=== PATIENT | female | born 1990 | race American Indian/Alaskan Native ===

== ENCOUNTER 2017-02-13 19:44 | Emergency (ER) | payer OTHER ==
[2017-02-13 20:37] LABS: Basophils % (Auto) 0.6 % (0.0-1.8); Eosinophils % (Auto) 1.3 % (0.0-4.3); Hematocrit 38.2 % (30.3-42.9); Hemoglobin 12.5 gm/dl (10.1-14.3); Mean Corpuscular HGB Conc 33 % (30-34); Mean Corpuscular Hemoglobin 29 pg (28-32); Mean Corpuscular Volume 87 fl (79-97); Platelet Count 376 K/mm3 (140-440); Red Cell Distribution Width 16.8 % (13.2-15.2); White Blood Count 8.6 K/mm3 (4.5-11.0)
[2017-02-13 21:25] LABS: Anion Gap 21 mmol/L; Blood Urea Nitrogen 9 mg/dL (7-17); Calcium 8.9 mg/dL (8.4-10.2); Carbon Dioxide 21 mmol/L (22-30); Chloride 100.1 mmol/L (98-107); Glucose 75 mg/dL (65-100); Potassium 3.9 mmol/L (3.6-5.0); Sodium 138 mmol/L (137-145)
[2017-02-13 21:57] LABS: Bilirubin,Urine NEG (Negative); Blood,Urine NEG (Negative); Ketones,Urine NEG (Negative); Leukocyte Esterase,Urine NEG (Negative); Mucus,Urine FEW /HPF; Nitrite,Urine NEG (Negative); Protein,Urine <15 mg/dL mg/dL (Negative); RBC,Urine < 1.0 /HPF (0.0-6.0); Urobilinogen,Urine < 2.0 mg/dL (<2.0)
[2017-02-14] MEDS ORDERED: TYLENOL PO ONE (00:04)
--- NOTE | 2017-02-14 02:16 | Ultrasound Report ---
FINAL REPORT PROCEDURE: US OB \T\lt; = 14 WEEKS FETUS TECHNIQUE: Real-time transvaginal sonography of the uterus, placenta, amniotic fluid, adnexa, and fetus was performed with image documentation. Measurements were obtained to determine age/size. M-mode Doppler was used to document heartbeat. HISTORY: abdominal pain. COMPARISON: No prior studies are available for comparison. FINDINGS: CRL: 22.2 mm, which corresponds to a gestational age of: 8 weeks, 6 days. Yolk Sac: Normal. Embryonic Cardiac Activity: 163 beats per minute Gestational Sac: Normal. Amniotic fluid: Normal. Cervix: Normal. Right Ovary: Not identified Left Ovary: There is a 2.6 centimeter corpus luteal cyst. Estimated delivery date: 09/20/2017 Uterus and adnexa: Normal. IMPRESSION: Single live intrauterine gestation at approximately 8 weeks and 6 days. EDC by US 09/20/2017
--- NOTE | 2017-02-14 02:16 | Ultrasound Report ---
FINAL REPORT PROCEDURE: US OB \T\lt; = 14 WEEKS FETUS TECHNIQUE: Real-time transabdominal sonography of the uterus, placenta, amniotic fluid, adnexa, and fetus was performed with image documentation. Measurements were obtained to determine age/size. M-mode Doppler was used to document heartbeat. CPT 61649 HISTORY: abdominal pain. COMPARISON: No prior studies are available for comparison. FINDINGS: CRL: 22.2 mm, which corresponds to a gestational age of: 8 weeks, 6 days. Yolk Sac: Normal. Embryonic Cardiac Activity: 163 beats per minute Gestational Sac: Normal. Amniotic fluid: Normal. Cervix: Normal. Right Ovary: Not identified Left Ovary: There is a 2.6 centimeter corpus luteal cyst. Estimated delivery date: 09/20/2017 Uterus and adnexa: Normal. IMPRESSION: Single live intrauterine gestation at approximately 8 weeks and 6 days. EDC by US 09/20/2017
[2017-02-14] MEDS ORDERED: ZOFRAN ODT PO ONE (03:28)
--- NOTE | 2017-02-14 03:31 | Emergency Department Report ---
HPI - General Chief Complaint: Abdominal Pain Time Seen by Provider: 02/14/17 03:08 - HPI HPI: Room 24 The patient is a 26-year-old female presenting with chief complaint of bilateral pedal edema and abdominal pain. Patient states she is but has not yet seen an SENIOR INTERACTIVE PRODUCER for this . Patient states she came today because for 1 week she has had swelling in both feet and it causes pain and difficulty using her shoes. Patient states for 2 days she has had periumbilical abdominal cramping. The patient states today she noticed intractable nausea vomiting making her unable to eat or drink. Location: [see above] Duration: [see above] Quality: Cramping Severity: Moderate Modifying factors: [see above] Context: [see above] Mode of transportation: Unknown ED Past Medical Hx - Past Medical History Hx Hypertension: Yes Additional medical history: PCOS, Morbid Obesity - Surgical History Additional Surgical History: X1 - Family History Family history: no significant - Social History Smoking Status: Never Smoker Substance Use Type: None - Medications Home Medications: Home Medications Medication Instructions Recorded Confirmed Last Taken Type Ondansetron [Zofran ODT TAB] 8 mg PO Q8HR #20 tab.rapdis 02/14/17 Unknown Rx ED Review of Systems ROS: Stated complaint: SWOLLEN FEET Other details as noted in HPI Comment: All other systems reviewed and negative Constitutional: denies: chills, fever Eyes: denies: eye pain, eye discharge, vision change ENT: denies: ear pain, throat pain Respiratory: denies: cough, shortness of breath, wheezing Cardiovascular: denies: chest pain, palpitations Endocrine: no symptoms reported Gastrointestinal: abdominal pain, nausea, vomiting Genitourinary: denies: urgency, dysuria, discharge Musculoskeletal: denies: back pain, joint swelling, arthralgia Skin: denies: rash, lesions Neurological: denies: headache, weakness, paresthesias Psychiatric: denies: anxiety, depression Hematological/Lymphatic: other (bilateral pedal edema) Physical Exam - Physical Exam Vital Signs: Vital Signs 02/13/17 20:15 Temperature 98.6 F Pulse Rate 84 Respiratory 16 Rate Blood Pressure 162/84 Blood Pressure 162/84 [Left] O2 Sat by Pulse 100 Oximetry Physical Exam: GENERAL: The patient is well-developed well-nourished female lying on stretcher not appearing to be in acute distress. [] HEENT: Normocephalic. Atraumatic. Extraocular motions are intact. Patient has moist mucous membranes. NECK: Supple. Trachea midline CHEST/LUNGS: Clear to auscultation. There is no respiratory distress noted. HEART/CARDIOVASCULAR: Regular. There is no tachycardia. There is no gallop rub or murmur. ABDOMEN: Abdomen is soft, without tenderness to palpation in all 4 quadrants of the abdomen. Patient has normal bowel sounds. There is no abdominal distention. SKIN: There is no rash. There is no pitting edema appreciated. Patient's body habitus makes evaluation for nonpitting edema difficult. There is no diaphoresis. NEURO: The patient is awake, alert, and oriented. The patient is cooperative. The patient has normal speech MUSCULOSKELETAL: There is no evidence of acute injury. ED Course Vital Signs 02/13/17 20:15 Temperature 98.6 F Pulse Rate 84 Respiratory 16 Rate Blood Pressure 162/84 Blood Pressure 162/84 [Left] O2 Sat by Pulse 100 Oximetry ED Medical Decision Making - Lab Data Result diagrams: 02/13/17 20:26 02/13/17 20:26 Laboratory Tests 02/13/17 02/13/17 02/13/17 20:26 20:26 20:26 WBC 8.6 RBC 4.40 Hgb 12.5 Hct 38.2 MCV 87 MCH 29 MCHC 33 RDW 16.8 H Plt Count 376 Lymph % (Auto) 40.0 H [place] % (Auto) 9.5 H Eos % (Auto) 1.3 Baso % (Auto) 0.6 Lymph # 3.4 [place] # 0.8 Eos # 0.1 Baso # 0.1 Seg Neutrophils % 48.6 Seg Neutrophils # 4.2 Sodium 138 Potassium 3.9 Chloride 100.1 Carbon Dioxide 21 L Anion Gap 21 BUN 9 Creatinine 0.6 L Estimated GFR > 60 BUN/Creatinine Ratio 15.00 Glucose 75 Calcium 8.9 Total Bilirubin Direct Bilirubin Indirect Bilirubin AST ALT Alkaline Phosphatase NT-Pro-B Natriuret Pep Total Protein Albumin Albumin/Globulin Ratio HCG, Quant 15631 H Urine Color Urine Turbidity Urine pH Ur Specific [place] Urine Protein Urine Glucose (UA) Urine Ketones Urine Blood Urine Nitrite Urine Bilirubin Urine Urobilinogen Ur Leukocyte Esterase Urine WBC (Auto) Urine RBC (Auto) U Epithel Cells (Auto) Urine Mucus 02/13/17 02/13/1702/13/17 20:26 20:26 21:21 WBC RBC Hgb Hct MCV MCH MCHC RDW Plt Count Lymph % (Auto) [place] % (Auto) Eos % (Auto) Baso % (Auto) Lymph # [place] # Eos # Baso # Seg Neutrophils % Seg Neutrophils # Sodium Potassium Chloride Carbon Dioxide Anion Gap BUN Creatinine Estimated GFR BUN/Creatinine Ratio Glucose Calcium Total Bilirubin 0.20 Direct Bilirubin < 0.2 Indirect Bilirubin 0.0 AST 14 ALT 16 Alkaline Phosphatase 40 NT-Pro-B Natriuret Pep 27.17 Total Protein 7.2 Albumin 3.5 L Albumin/Globulin Ratio 0.9 HCG, Quant Urine Color Yellow Urine Turbidity Clear Urine pH 6.0 Ur Specific [place] 1.017 Urine Protein <15 mg/dl Urine Glucose (UA) Neg Urine Ketones Neg Urine Blood Neg Urine Nitrite Neg Urine Bilirubin Neg Urine Urobilinogen < 2.0 Ur Leukocyte Esterase Neg Urine WBC (Auto) 1.0 Urine RBC (Auto) < 1.0 U Epithel Cells (Auto) 2.0 Urine Mucus Few - Radiology Data Radiology results: report reviewed (pelvic ultrasound), image reviewed (pelvic ultrasound) Pelvic ultrasound (read by radiologist)-single live intrauterine gestation at approximately 8 weeks and 6 days. - Differential Diagnosis hypoalbuminemia, renal insufficiency, Critical care attestation.: If time is entered above; I have spent that time in minutes in the direct care of this critically ill patient, excluding procedure time. ED Disposition Clinical Impression: Pedal edema, , Nausea & vomiting Disposition: DC-01 TO HOME OR SELFCARE Is pt being admited?: No Does the pt Need Aspirin: No Condition: Stable Instructions: Abdominal Pain (ED) Additional Instructions: Return to the emergency department immediately should you develop worsening symptoms, fever, inability to tolerate food or liquid or any other concerns. Prescriptions: Ondansetron [Zofran ODT TAB] 8 mg PO Q8HR #20 tab.rapdis Referrals: PRIMARY CAREMD [Primary Care Provider] - 3-5 Days SVETLANA SANTOYO MD [Staff Physician] - 3-5 Days (Dr. Santoyo is an OB/ FREEZER WORKER. Please follow up with her or-year-old SENIOR INTERACTIVE PRODUCER for further evaluation) Time of Disposition: 04:04 (patient tolerated by mouth challenge)
[2017-02-14 03:37] LABS: Alanine Aminotransferase 16 units/L (7-56); Albumin 3.5 g/dL (3.9-5); Albumin/Globulin Ratio 0.9 %; Alkaline Phosphatase 40 units/L (35-129); Total Protein 7.2 g/dL (6.3-8.2)
[2017-02-14 03:40] LABS: Bilirubin,Direct < 0.2 mg/dL (0-0.2)
[2017-02-14 05:12] VITALS: BP 125/79
== END 2017-02-14 04:40 | disposition home or self-care (01) ==
LOC: ED 19:44
DX: O12.01 Gestational edema, first trimester (principal); O21.9 Vomiting of pregnancy, unspecified; R11.0 Nausea; E28.2 Polycystic ovarian syndrome; E66.01 Morbid (severe) obesity due to excess calories; I10 Essential (primary) hypertension; Z91.040 Latex allergy status; Z3A.08 8 weeks gestation of pregnancy
CPT/HCPCS: 36415; 76801; 76817; 80048; 80074; 81001; 82962; 83880; 84702; 85025; Q0162

== ENCOUNTER 2017-07-18 20:26 | Inpatient (IN) | payer MEDICAID, OTHER ==
[2017-07-18] MEDS ORDERED: ANCEF/STERILE WATER 2 GM/20 ML 2 GM/20 ML SYRINGE IV ONE (20:32)
--- NOTE | 2017-07-18 20:32 | History and Physical Report ---
History of Present Illness Date of examination: 07/18/17 (presented via EMS PPROM Breech; previous c/s) Date of admission: 07/18/17 20:26 Chief complaint: pt states her water broke @ 1945 History of present illness: Pt was receiving care with [facility] @ [place] and also going to [facility] due to her chronic htn SAB X 1 2015 term NRFT male emergency c/s; chronic htn Pt is on [place] po BID - pt does not know mg Med HX: htn Surgical HX: c/s eye surgery Denies smoking, drinking, drug use Past History - Obstetrical History Expected Date of Delivery: 09/20/17 Actual Gestation: 30 Week(s) 6 Day(s) : 3 Para: 1 Hx # Term Pregnancies: 1 (CHTN; section) Spontaneous Abortions: 1 Number of Living Children: 1 Medications and Allergies Allergies Allergy/AdvReac Type Severity Reaction Status Date / Time latex Allergy Rash Verified 02/13/17 20:22 Home Medications Medication Instructions Recorded Confirmed Last Taken Type Ondansetron [Zofran ODT TAB] 8 mg PO Q8HR #20 tab.rapdis 02/14/17 Unknown Rx Results Result Diagrams: 07/18/17 20:29 All other labs normal. Assessment and Plan 26yo @ 30w6d with PPROM clear fluid, breech, in labor. Previous section. made aware NICU notified Orders in EMR - Patient Problems (1) 30 weeks gestation of Onset Date: ~07/18/17 Current Visit: Yes Status: Acute (2) BMI 60.0-69.9, adult Onset Date: ~07/18/17 Current Visit: Yes Status: Acute (3) Breech presentation Onset Date: ~07/18/17 Current Visit: Yes Status: Acute Qualifiers: Fetus number: single or unspecified fetus Qualified Code(s): O32.1XX0 - Maternal care for breech presentation, not applicable or unspecified (4) premature rupture of membranes in third trimester Onset Date: ~07/18/17 Current Visit: Yes Status: Acute (5) Previous section Current Visit: Yes Status: Acute
[2017-07-18] MEDS ORDERED: PHENERGAN PO PRN (20:38)
[2017-07-18] MEDS ORDERED: MORPHINE IV PRN (20:38)
[2017-07-18] MEDS ORDERED: ZOFRAN IV PRN (20:38)
[2017-07-18] MEDS ORDERED: PHENERGAN PR PRN (20:38)
[2017-07-18] MEDS ORDERED: NARCAN 0.4 MG/1 ML IV PRN ×2 (20:38→22:46)
--- NOTE | 2017-07-18 20:38 | Anesthesia Day of Surgery ---
Anesthesia Day of Surgery - Day of Surgery Patient Examined: Yes Patient H&P Reviewed: Yes Patient is NPO: Yes
--- NOTE | 2017-07-18 20:38 | Anesthesia Consultation ---
Anesthesia Consult and Med Hx Date of service: 07/18/17 - Airway Anesthetic Teeth Evaluation: Good ROM Head & Neck: Adequate Mental/Hyoid Distance: Adequate Mallampati Class: Class III Intubation Access Assessment: Probably Good - Pulmonary Exam CTA: Yes - Cardiac Exam Cardiac Exam: RRR - Pre-Operative Health Status ASA Pre-Surgery Classification: ASA3 Proposed Anesthetic Plan: Spinal - Cardiovascular System Hx Hypertension: Yes - Other Systems Hx Obesity: Yes
[2017-07-18] MEDS ORDERED: MORPHINE ONE (20:50)
[2017-07-18 20:51] LABS: Basophils # (Auto) 0.1 K/mm3 (0.0-0.1); Basophils % (Auto) 0.5 % (0.0-1.8); Eosinophils # (Auto) 0.1 K/mm3 (0.0-0.4); Eosinophils % (Auto) 0.9 % (0.0-4.3); Hematocrit 36.6 % (30.3-42.9); Hemoglobin 11.9 gm/dl (10.1-14.3); Lymphocytes # (Auto) 2.5 K/mm3 (1.2-5.4); Lymphocytes % (Auto) 21.9 % (13.4-35.0); Mean Corpuscular HGB Conc 33 % (30-34); Mean Corpuscular Hemoglobin 29 pg (28-32); Mean Corpuscular Volume 90 fl (79-97); Monocytes % (Auto) 8.8 % (0.0-7.3); Platelet Count 329 K/mm3 (140-440); Red Blood Count 4.08 M/mm3 (3.65-5.03); Red Cell Distribution Width 14.8 % (13.2-15.2)
[2017-07-18] MEDS ORDERED: LACTATED RINGERS 1,000 ML IV SCH (21:00)
[2017-07-18] MEDS ORDERED: ANCEF/STERILE WATER 2 GM/20 ML 2 GM/20 ML SYRINGE IV NR (21:00)
[2017-07-18] MEDS ORDERED: BICITRA PO ONE (21:00)
[2017-07-18] MEDS ORDERED: fentaNYL-BUPIV 2 MCG/ML-0.125% 200 MCG/100 ML BAG EPIDURAL SCH (21:00)
[2017-07-18] MEDS ORDERED: REGLAN IV ONE (21:00)
[2017-07-18] MEDS ORDERED: PITOCin/NS 20 UNIT/1000ML DRIP 20 UNITS/1,000 ML BAG IV SCH (21:00)
[2017-07-18] MEDS ORDERED: PEPCID IV ONE (21:00)
[2017-07-18] MEDS ORDERED: SODIUM CHLORIDE FLUSH SYRINGE 10 ML IV NR ×2 (21:00→23:00)
[2017-07-18] MEDS ORDERED: WATER FOR IRRIG STERILE IR ONE (21:05)
[2017-07-18] MEDS ORDERED: NACL 0.9% IR ONE (21:05)
[2017-07-18 21:20] LABS: Rubella IgG Antibody Immune (Immune)
[2017-07-18] MEDS ORDERED: TORADOL ONE (21:20)
[2017-07-18] MEDS ORDERED: NEO SYNEPHRINE ONE (21:20)
[2017-07-18 21:22] LABS: Hepatitis C Virus Antibody Non-Reactive (NonReactive)
[2017-07-18] MEDS ORDERED: NORCO 5/325 PO PRN (22:46)
[2017-07-18] MEDS ORDERED: TUCKS PAD TP PRN (22:46)
[2017-07-18] MEDS ORDERED: LANSINOH TP PRN (22:46)
--- NOTE | 2017-07-18 22:53 | Operative Report ---
Operative Report Operative Report: Date of procedure: 07/18/2017 Pre-operative diagnosis: 31 weeks gestation Moderate obesity Previous section Spontaneous rupture membranes labor Breech presentation Post-operative diagnosis: Same plus unstable lie Procedure name(s): Repeat classical section via midline Surgeon: Dr. Madrigal Manager [employer]ing: SRIKANTH Anesthesia: Spinal EBL: 700 mL Urine output: 600 mL of clear urine at the end of the procedure Fluids: 2 L Findings: Liveborn female in cephalic presentation weight 3 lbs. 10 oz. Apgars of 8 and 9 at one and 5 minutes Grossly normal fallopian tubes and ovaries bilaterally Indications: Patient presented with above stated diagnoses. All risks benefits were discussed with the patient. Consents were signed and placed on chart. Patient taken to the operating room for above-stated procedure Procedure: Patient was taking to the operating room. Patient was then prepped and draped in sterile fashion after anesthesia was found to be adequate. A midline skin incision was made with the scalpel through previous incisional scar and carried down to the underlying layer of fascia with the scalpel. The fascia was then incised in the midline and this incision was extended superiorly and inferiorly with the Bovie. The rectus muscles were sharply divided in the midline. The peritoneum was identified and entered into sharply. Classical uterine incision was made with the scalpel and extended inferiorly and inferiorly with the scalpel and blunt dissection. Clear fluid noted upon entry into the uterine cavity The infant's head was then delivered atraumatically. The anterior shoulder and rest of delivered without difficulty. There was a nuchal cord 1 that was easily reduced. The umbilical cord was clamped x2. The cord was cut. The was then placed in sterile bassinet. The cord blood was collected. The placenta was manually extracted in its entirety. The uterus was exteriorized and cleared of all clots and debris. The uterine incision was closed using 0 Vicryl in a running locking fashion. Several layers of [id number] sutures were used to close the midline uterine incision. Excellent hemostasis was noted. The posterior cul-de -sac was copiously irrigated. The uterus was returned to the abdomen. The gutters were also irrigated.. The anterior rectus fascia was reapproximated using 0 looped PDS in a running fashion superiorly to midline and inferiorly to midline. The subcuticular fat was reapproximated using 1 PDS in a running fashion. The skin was reapproximated with eloisa. The patient tolerated the procedure well. Sponge lap and needle counts were all correct x3. Patient was taken to the recovery room awake and in stable condition.
--- NOTE | 2017-07-19 00:15 | Event Note ---
Date: 07/19/17 Called by nursing due to having dressing partially saturated from the pt large pannus and vaginal bleeding as well as some on the lower porition of the incision. Dressing removed and incision with some bleeding noted but appears to be minimal and at the level of the eloisa and sub q fat. Pt has a very large pannus and dressing did not have enough pressure being applied. Dressing change done by myself and no bleeding or saturation noted at this time. We are having some difficulty getting SCDs that fit the pt lower ext on the floor. Will look on med surge floor and if not able to find foot pumps, or scds, or shae hose to fit, will proceed with medical anticoagulant. I d/w that should her incision continue to show bleeding that is worsening, it could indicate need for repeat surgery or placement of more eloisa in the incision. Pt expressed understanding and questions were addressed and answered. Will keep dressing for full 24 hours and remove on 07/20/3017Thursday.
[2017-07-19] MEDS: D5LR 1,000 ML IV SCH ×2 (02:46→14:20)
[2017-07-19] MEDS: ANCEF/NS 1 GM/50 ML 1 GM/50 ML BAG IV SCH ×2 (04:47→13:25)
[2017-07-19] MEDS ORDERED: LACTATED RINGERS 500 ML IV SCH (10:00)
[2017-07-19] MEDS ORDERED: ZOFRAN IV ONE (10:02)
[2017-07-19] MEDS ORDERED: ZOFRAN IV PRN (10:07)
--- NOTE | 2017-07-19 10:12 | Event Note ---
Date: 07/19/17 pt seen this am and reports some nausea with emesis. encouraged pt to sit up more in bed as she may have reflux. pt dressing evaluated and there is a small area that has been marked off in the lower portion of the incision where she had bleeding last night.This has been since dressing was replaced with pressure dressing. no active bleeding at this time from the icision it appears but will cont to closely monitor and keep dressing inplace until tomorrow.
--- NOTE | 2017-07-19 11:22 | Progress Note ---
Assessment and Plan - Patient Problems (1) delivery delivered Onset Date: ~07/19/17 Current Visit: Yes Status: Acute Plan to address problem: Pt sipping water Voicing c/o nausea and asking when can she eat. VSS BP 130-120/ 80s afebrile Scant lochia noted Area on lower dressing circled and timed that appears to be wet, it has not soaked through. made aware and she has seen the pt. Will monitor and re-eval. Stable s/p repeat c/s P: continue pathway Maintain dressing until tomorrow Monitor urine output IVF bolus given. Advance as tolerated. Subjective - Subjective Date of service: 07/19/17 (pt c/o nausea but requesting to eat) Principal diagnosis: Day # 1 s/p repeat c/s; PPROM / Breech Interval history: Pt was receiving care with [facility] @ [place] and also going to [facility] due to her chronic htn SAB X 1 2016 term NRFT male emergency c/s; chronic htn Pt is on [place] po BID - pt does not know mg Med HX: htn Surgical HX: c/s eye surgery Denies smoking, drinking, drug use Patient reports: voiding normally (urine is red tinged in [place] bag; will bolus and reveal) : in NICU Objective - Vital Signs Latest vital signs: Vital Signs Temp Pulse Resp BP BP Pulse Ox 07/19/17 09:40 98.6 F 61 18 98/51 07/19/17 05:50 99.4 F 100 H 20 117/69 07/19/17 00:30 98.0 F 83 20 137/83 07/18/17 23:12 98.1 F 07/18/17 23:05 95 H 16 145/83 98 07/18/17 23:00 78 22 126/65 99 07/18/17 22:55 75 21 126/62 97 07/18/17 22:49 87 23 130/73 96 07/18/17 22:48 131/69 07/18/17 22:39 76 17 131/69 96 07/18/17 22:33 79 13 124/74 97 07/18/17 22:27 78 16 128/78 97 07/18/17 22:22 77 16 98 07/18/17 22:21 97.8 F 80 21 110/59 98 Intake and Output 07/18/17 07/19/17 07/19/17 22:59 06:59 14:59 Intake Total 1999 280 120 Output Total 600 475 200 Balance 1400 -195 -80 Intake: IV 2000 100 Oral 120 Intake, Free Water 180 Output: Urine 600 475 Indwelling Catheter 400 Emesis 200 Other: Total, Intake Amount 120 Total, Output Amount 400 200 Weight 400 lb - Exam Breasts: Present: normal Cardiovascular: Present: Regular rate Lungs: Present: Clear to auscultation, Normal air movement Abdomen: Present: normal appearance, soft Uterus: Present: normal, fundal height below umbilicus Extremities: Present: normal, edema Deep Tendon Reflex Grade: Normal +2 Incision: Present: normal, dry, intact, dressed (area circled and timed to note bleeding aware) - Labs Labs: Abnormal lab results 07/18/17 Range/Units 20:29 WBC 11.5 H (4.5-11.0) K/mm3 [place] % (Auto) 8.8 H (0.0-7.3) % [place] # 1.0 H (0.0-0.8) K/mm3 Seg Neutrophils # 7.8 H (1.8-7.7) K/mm3
[2017-07-19 11:53] LABS: Hematocrit 35.2 % (30.3-42.9); Hemoglobin 11.2 gm/dl (10.1-14.3)
[2017-07-19] MEDS ORDERED: ceFAZolin 1 GM in NACL 0.9% 20 ML IV NR (13:30)
[2017-07-19] MEDS: TORADOL IV PRN ×2 (14:20→19:56)
[2017-07-19 15:13] LABS: Bacteria,Urine 1+ /HPF (Negative); Bilirubin,Urine NEG (Negative); Blood,Urine LG (Negative); Color,Urine Amber (Yellow); Mucus,Urine 2+ /HPF; Nitrite,Urine NEG (Negative)
[2017-07-19 15:48] LABS: Amphetamine Screen,Urine PRESUMPTIVE NEGATIVE; Benzodiazepines Screen,Urine PRESUMPTIVE NEGATIVE; Cannabinoid Screen,Urine PRESUMPTIVE NEGATIVE; Cocaine Screen,Urine PRESUMPTIVE NEGATIVE; Methadone Screen,Urine PRESUMPTIVE NEGATIVE; Opiate Screen,Urine PRESUMPTIVE NEGATIVE
[2017-07-19] MEDS ORDERED: XYLOCAINE 1% 20 mL INFILTRATI ONE (18:11)
[2017-07-19] MEDS: NORCO 5/325 PO PRN (18:30)
--- NOTE | 2017-07-19 20:06 | Event Note ---
Date: 07/19/17 Dressing saturated and removed. Minimal bleeding noted. When expressed again very little bleeding noted at level of the skin and sub q fat. Lidocaine without epi injected and several eloisa placed to approximate the skin where the bleeding was noted. No bleeding noted at this time. Pt tolerated procedure well. All questions were addressed and answered.
--- NOTE | 2017-07-19 21:35 | Progress Note ---
Subjective Date of service: 07/19/17 Principal diagnosis: Day # 1 s/p repeat c/s; PPROM / Breech Interval history: Patient is doing well. No anesthetic related complaints. Objective - Constitutional Vitals: Vital Signs - 12hr 07/19/17 07/19/17 07/19/17 09:40 14:40 16:00 Temperature 98.6 F 98.3 F 98.6 F Pulse Rate 61 72 120 H Respiratory 18 18 22 Rate Blood Pressure 98/51 124/68 112/41 [Left] 07/19/17 18:30 Temperature Pulse Rate Respiratory 20 Rate Blood Pressure [Left] - Labs CBC & Chem 7: 07/19/17 11:27 Labs: Abnormal lab results 07/19/17 Range/Units 15:00 Ur Specific [place] 1.032 H (1.003-1.030)
[2017-07-20] MEDS: NORCO 5/325 PO PRN (05:16)
[2017-07-20] MEDS: MOTRIN PO PRN ×4 (05:17→23:09)
--- NOTE | 2017-07-20 06:46 | Progress Note ---
Assessment and Plan - Patient Problems (1) delivery delivered Onset Date: ~07/19/17 Current Visit: Yes Status: Acute Plan to address problem: Pt states she only has pain in lower part of incision. Stressed because getting OOB is difficult and she has had 2 voiding accidents tonight. Offered bedside commode. VSS abdomen soft dressing is wet on lower portion appears serosangious. Pt does not have on artie pad No lochia noted. H&H no chg from admission. Pt is asymptomatic Stable with exception of issues with drainage from incision. P: will consult about dressing chg or leaving open to air. Bedside commode placed. Continue pathway. Subjective - Subjective Date of service: 07/20/17 (pt standing beside bed) Principal diagnosis: Day # 1 1/2 s/p repeat c/s; PPROM / Breech Interval history: Pt was receiving care with [facility] @ [place] and also going to [facility] due to her chronic htn SAB X 1 2016 term NRFT male emergency c/s; chronic htn Pt is on [place] po BID - pt does not know mg Med HX: htn Surgical HX: c/s eye surgery Denies smoking, drinking, drug use Patient reports: appetite normal, pain well controlled, ambulating normally, other (pt has had several accidents trying to get to the toilet and voided before she could get to the bathroom; beside commode offered) : in NICU Objective - Vital Signs Latest vital signs: Vital Signs Temp Pulse Resp BP 07/20/17 00:00 98.2 F 96 H 20 128/77 07/19/17 18:30 20 07/19/17 16:00 98.6 F 120 H 22 112/41 07/19/17 14:40 98.3 F 72 18 124/68 07/19/17 09:40 98.6 F 61 18 98/51 Intake and Output 07/19/17 07/19/17 07/20/17 14:59 22:59 06:59 Intake Total 1240 240 Output Total 200 50 800 Balance 1040 -50 -560 Intake: IV 1000 D5lr 1,000 ml @ 125 mls/ 1000 hr IV DIRECT WILLIAM Rx#: [id number] Oral 240 240 Output: Urine 50 800 Void 50 800 Emesis 200 Other: Total, Intake Amount 120 240 Total, Output Amount 200 50 800 # Voids Indwelling Catheter 350 - Exam Breasts: Present: normal Cardiovascular: Present: Regular rate Lungs: Present: Clear to auscultation, Normal air movement Abdomen: Present: soft, normal bowel sounds, other (pendulous; abdominal binder on) Extremities: Present: edema Deep Tendon Reflex Grade: Normal +2 Incision: Present: other (dressing wet entire lower portion; marked; appears serosanguious) - Labs Labs: Abnormal lab results 07/19/17 Range/Units 15:00 Ur Specific [place] 1.032 H (1.003-1.030)
[2017-07-20] MEDS ORDERED: DEPO-PROVERA (CONTRACEPTION) IM ONE ×2 (07:00→18:00)
--- NOTE | 2017-07-20 08:08 | Event Note ---
<FRANCI PICKENS - Last Filed: 07/20/17 08:00> Date: 07/20/17 (Pt agrees to dressing removal) Dressing removed Saturated 4x4 applied No reinforcing dressing as per 's order. Pt tolerated removal. Small area of abrasion noted Pt made aware <CLARITA GRIMES - Last Filed: 07/20/17 09:06> Pt resting in bed, no complaints, scant blood at inferior end of vertical incision, blood appears to be superficial around eloisa. No obvious evidence infection or dehiscence. No ecchymosis or swelling. Will have incision reinforced with 4X4's and abdominal binder. Encourage ambulation. Observe closely
[2017-07-20] MEDS: PERCOCET 5/325 PO PRN ×3 (11:20→23:09)
[2017-07-21] MEDS: MOTRIN PO PRN ×3 (05:21→20:54)
[2017-07-21] MEDS: PERCOCET 5/325 PO PRN ×3 (05:21→20:53)
[2017-07-21] MEDS: MYLICON PO PRN (05:24)
[2017-07-21] MEDS ORDERED: BOOSTRIX IM ONE (06:00)
--- NOTE | 2017-07-21 08:22 | Progress Note ---
Assessment and Plan patient resting with c/o some lower abd pain under panis, in NICU. Patient is pumping and encouraged to pump q3h. VSSAF (130's/70's) H&H stable - asymptomatic for anemia, lochia scant. Continue postop pathway. Dr. Madrigal will come assess incision. - Patient Problems (1) Wound drainage Current Visit: Yes Status: Acute Plan to address problem: Dr. Madrigal will assess - dressing currently dry and intact (2) BMI 60.0-69.9, adult Onset Date: ~07/18/17 Current Visit: Yes Status: Acute (3) delivery delivered Onset Date: ~07/19/17 Current Visit: Yes Status: Acute Subjective - Subjective Date of service: 07/21/17 Principal diagnosis: Day # 3 s/p repeat c/s; PPROM / Breech, morbidly obese Patient reports: appetite normal, voiding normally, pain well controlled, flatus , ambulating normally, no dizzy ambulation, no nauseated [place]: in NICU (pumping breast) Objective - Vital Signs Latest vital signs: Vital Signs Temp Pulse Resp BP 07/21/17 00:00 98.0 F 88 20 136/73 07/20/17 17:53 20 07/20/17 17:52 20 07/20/17 16:30 97.9 F 90 20 131/78 07/20/17 12:40 98.8 F 86 20 130/80 07/20/17 11:20 18 Intake and Output 07/20/17 07/21/17 07/21/17 23:59 07:59 15:59 Intake Total 120 360 Output Total 150 Balance -30 360 Intake: Oral 120 360 Output: Urine 150 Void 150 Other: Total, Intake Amount 120 120 Total, Output Amount 150 # Voids Void 1 - Exam Breasts: Present: normal Cardiovascular: Present: Regular rate Lungs: Present: Clear to auscultation, Normal air movement Abdomen: Present: normal appearance, soft, normal bowel sounds Uterus: Present: normal, firm Extremities: Present: normal Incision: Present: dressed (incision dressed and reinforced - currently dry but changed by RN recently)
--- NOTE | 2017-07-21 18:55 | Event Note ---
Date: 07/21/17 Dressing removed this am with minimal bleeding from the skin edges noted. I examined pt this pm and she states she has just seen some staining on her gown or underwear from the healing incision. She is overall doing well. Incision does not appear infected but the bleeding appears to be from the pulling where the eloisa are as the incision is healing. I d/w having a dressing or covering over the incision when she is at home and educated her on how to do the changes daily with just the abdominal padding and tape. All questions were addressed and answered. Pt does c/o sob with movement. Will obtain repeat h/h as well as cxr at this time. Breathing is not labored and breath sounds are normal at the bedside. If studies are negative will plan for d/c home in the am with staple removal in the office in one week.
[2017-07-21 21:08] LABS: Hemoglobin 10.6 gm/dl (10.1-14.3)
[2017-07-22] MEDS: MYLICON PO PRN (00:42)
[2017-07-22] MEDS: MOTRIN PO PRN ×2 (06:01→11:48)
--- NOTE | 2017-07-22 09:54 | XRay Report ---
FINAL REPORT EXAM: XR CHEST ROUTINE 2V HISTORY: sob/ post op TECHNIQUE: Chest, PA and lateral PRIORS: None. FINDINGS: The heart size is normal. Mediastinal contours are normal. Pulmonary vasculature is not congested. The lungs are clear. There are no pleural effusion seen. There is no evidence of pneumothorax. IMPRESSION: There is no acute abnormality identified.
--- NOTE | 2017-07-22 09:54 | Discharge Summary ---
Providers - Providers Date of Admission: 07/18/17 20:26 Date of discharge: 07/22/17 Attending physician: CLARITA GRIMES Primary care physician: CLARITA GRIMES Hospitalization Reason for admission: Repeat c/s, 31 week, SROM, labor, morbid obesity, Breech, labor Condition: Good Pertinent studies: CXR neg, CBC WBC 10,500, Hct 32 Procedures: Procedure name(s): Repeat classical section via previous midline skin incision Hospital course: Did relatively well, except for some drainage from midline incision which is closed with eloisa and intact to my inspection. One episode SOB with neg CXR and resolution of sx. Disposition: - TO HOME OR SELFCARE Core Measure Documentation - Palliative Care Palliative Care/ Comfort Measures: Not Applicable - Core Measures Any of the following diagnoses?: none Exam - Constitutional Vitals: Temp Pulse Resp BP Pulse Ox 97.7 F 96 H 18 139/67 100 07/22/17 09:02 07/22/17 09:02 07/22/17 09:02 07/22/17 09:02 07/22/17 00:10 General appearance: Present: no acute distress - EENT ENT: hearing intact - Respiratory Respiratory effort: normal - Cardiovascular Rhythm: regular - Extremities Extremities: no ischemia, No edema - Abdominal General gastrointestinal: Present: soft, non-tender (eloisa and incision intact , some drainage which is decreasing) Female genitourinary: Present: deferred - Integumentary Integumentary: Present: clear, warm, dry - Musculoskeletal Musculoskeletal: strength equal bilaterally - Psychiatric Psychiatric: appropriate mood/affect - Neurologic Neurologic: CNII-XII intact Plan Activity: advance as tolerated Weight Bearing Status: Full Weight Bearing Diet: regular Wound: keep clean and dry, change dressing, per your surgeon's advice Follow up with: CLARITA GRIMES MD [Primary Care Provider] - 7 Days (Has appt with Dr Madrigal on 07/27/17 at 3 PM recorded now as [facility] Patient) Forms: [facility] Discharge Summary, Work/School Release Form Prescriptions: Ibuprofen 800 mg PO Q6HR #30 tablet oxyCODONE /ACETAMINOPHEN [Percocet 5/325] 1 tab PO Q4HR #30 tab Sulfamethoxazole/Trimethoprim [Bactrim DS TAB] 1 each PO BID #14 tablet
[2017-07-22] MEDS: PERCOCET 5/325 PO PRN (11:42)
[2017-07-22 13:57] VITALS: BP 142/78
== END 2017-07-22 16:39 | disposition home or self-care (01) | DRG 765 ==
LOC: OBSVTOIN 20:26 → LD 20:26 → OB 07-19 00:46
PROVIDERS: ADMIT Obstetrics & Gynecology; ATTEND Obstetrics & Gynecology
PROC: 10D00Z1 Extraction of Products of Conception, Low, Open Approach (ICD-10-PCS; principal; 2017-07-18)
PROC: 3E0234Z Introduction of Serum, Toxoid and Vaccine into Muscle, Percutaneous Approach (ICD-10-PCS; 2017-07-20)
DX: O32.1XX0 Maternal care for breech presentation, not applicable or unspecified (principal); Z68.44 Body mass index [BMI] 60.0-69.9, adult; O10.92 Unspecified pre-existing hypertension complicating childbirth; Z3A.31 31 weeks gestation of pregnancy; Z37.0 Single live birth; E66.01 Morbid (severe) obesity due to excess calories; Z23 Encounter for immunization; O42.013 Preterm premature rupture of membranes, onset of labor within 24 hours of rupture, third trimester; O99.214 Obesity complicating childbirth; O90.89 Other complications of the puerperium, not elsewhere classified; O69.81X0 Labor and delivery complicated by cord around neck, without compression, not applicable or unspecified
CPT/HCPCS: 36415; 71046; 80307; 81001; 85014; 85018; 85025; 85660; 86592; 86706; 86762; 86803; 86850; 86900; 86901; 87806; 88307; 90471; 90715; 99211; C1765; G0463; J0690; J1050; J1885; J2270; J2370; J2405; J2590; J2765; J7120; J7121